=== PATIENT | female | born 1990 | race Caucasian/White ===

== ENCOUNTER 2018-11-04 17:44 | Emergency (ER) | payer SELFPAY ==
[2018-11-04] MEDS ORDERED: OLANZapine 5 MG Tab PO ONE (18:38)
--- NOTE | 2018-11-04 18:42 | EDM.PDOCBH ---
ED HPI GENERAL MEDICAL PROBLEM - General Chief Complaint: Behavioral/Psych Stated Complaint: MEDICAL [facility]IA [facility] Time Seen by Provider: 11/04/18 18:10 Source of Information: Reports: Patient, EMS History Limitations: Reports: Other (minimal old records available, patient not a reliable historian. ) - History of Present Illness INITIAL COMMENTS - FREE TEXT/NARRATIVE: 28 yo female here via EMS who were requested by [employer]. Apparently Martin was on someone deck as a trespasser and when police arrived Martin was making no sense so she was sent to the ER via EMS for evaluation. At some point in the past Martin was on Zyprexa based on the limited records we have. She indicates she has not taken this med for sometime. Martin speaks clearly, but rambles from topic to topic never making any sense. She is not able to tell us about where she lives, where or who her family is, or who her doctor is. She didn't seem to be aware she was on a strangers porch earlier today. Onset: Unknown/Unsure Duration: Chronic (suspect.) Location: Reports: Generalized Severity: Severe Improves with: Reports: Medication (suspected) Context: Reports: Other (suspect chronic mental illness, ? untreated currently) Associated Symptoms: Reports: No Other Symptoms Treatments [employer]: Reports: Other (see below) (none) - Related Data Allergies Allergy/AdvReac Type Severity Reaction Status Date / Time No Known Allergies Allergy Verified 12/01/13 12:01 Home Meds: Home Meds OLANZapine [ZyPREXA] 5 mg PO BEDTIME #30 tab 11/04/18 [Rx] Social & Family History - Tobacco Use Smoking Status *Q: Unknown Ever Smoked ED ROS GENERAL - Review of Systems Review Of Systems: Unable To Obtain (due to patient's current mental illness) ED EXAM, BEHAVIORAL HEALTH - Physical Exam Exam: See Below Exam Limited By: No Limitations General Appearance: Alert, WD/WN, No Apparent Distress Eye Exam: Bilateral Eye: EOMI, Normal Inspection Ears: Other (R ear lobe is red, the L ear she would not let me examine.) Nose: Normal Inspection, No Blood Throat/Mouth: Normal Inspection, Normal Lips, Normal Teeth, Normal Oropharynx, Normal Voice, No Airway Compromise Head: Atraumatic, Normocephalic Neck: Normal Inspection Respiratory/Chest: No Respiratory Distress, Lungs Clear, Normal Breath Sounds, No Accessory Muscle Use Cardiovascular: Regular Rate, Rhythm, No Edema, No Murmur GI/Abdominal: Soft, Non-Tender Back Exam: Normal Inspection Extremities: Normal Inspection, Normal Range of Motion, Non-Tender, No Pedal Edema Neurological: Alert, Normal Mood/Affect, CN II-XII Intact, No Motor/Sensory Deficits, Disoriented to Place, Disoriented to Time. No: Normal Cognition, Disoriented to Person Psychiatric: Alert, Normal Affect, Normal Cognition, Normal Mood, Tangential Thoughts, Grandiose Thoughts, Paranoid Thoughts. No: Homicidal Thoughts, Suicidal Thoughts, Threatening Behavior Skin Exam: Warm, Dry, Intact, Normal color, No rash COURSE, BEHAVIORAL HEALTH COMP - Course Vital Signs: Last Vital Signs Temp 36.3 C 11/04/18 17:54 Pulse 100 11/04/18 17:54 Resp 14 11/04/18 17:54 BP 140/99 H 11/04/18 17:54 Pulse Ox 99 11/04/18 17:54 Orders, Labs, Meds: Laboratory Tests 11/04/18 11/04/18 11/04/18 Range/Units 19:51 19:51 19:51 WBC (4.5-11.0) K/uL RBC (3.30-5.50) M/uL Hgb (12.0-15.0) g/dL Hct (36.0-48.0) % MCV (80-98) fL MCH (27-31) pg MCHC (32-36) % Plt Count (150-400) K/uL Sodium (140-148) mmol/L Potassium (3.6-5.2) mmol/L Chloride (100-108) mmol/L Carbon Dioxide (21-32) mmol/L Anion Gap (5.0-14.0) mmol/L BUN (7-18) mg/dL Creatinine (0.6-1.0) mg/dL Est Cr Clr Drug Dosing mL/min Estimated GFR (MDRD) (>60) Glucose (74-106) mg/dL Calcium (8.5-10.1) mg/dL TSH, Ultra Sensitive (0.358-3.740) uIU/mL Urine Color Yellow Urine Appearance Clear Urine pH 5.0 (4.5-8.0) Ur Specific [place] 1.025 (1.008-1.030) Urine Protein 30 H (NEGATIVE) mg/dL Urine Glucose (UA) Normal (NEGATIVE) mg/dL Urine Ketones 150 H (NEGATIVE) mg/dL Urine Occult Blood Negative (NEGATIVE) Urine Nitrite Negative (NEGATIVE) Urine Bilirubin Negative (NEGATIVE) Urine Urobilinogen Normal (NORMAL) mg/dL Ur Leukocyte Esterase Negative (NEGATIVE) Urine RBC 0-5 (0-5) Urine WBC 0-5 (0-5) Ur Epithelial Cells Moderate Amorphous Sediment Not seen Urine Bacteria Moderate Urine Mucus Many Urine HCG, Qual Negative Urine Opiates Screen Negative (NEGATIVE) Ur Oxycodone Screen Negative (NEGATIVE) Urine Methadone Screen Negative (NEGATIVE) Ur Propoxyphene Screen Negative (NEGATIVE) Ur Barbiturates Screen Negative (NEGATIVE) Ur Tricyclics Screen Negative (NEGATIVE) Ur Phencyclidine Scrn Negative (NEGATIVE) Ur Amphetamine Screen Presumptive positive H (NEGATIVE) U Methamphetamines Scrn Presumptive positive H (NEGATIVE) Urine MDMA Screen Presumptive positive H (NEGATIVE) U Benzodiazepines Scrn Negative (NEGATIVE) U Cocaine Metab Screen Negative (NEGATIVE) U Marijuana (THC) Screen Negative (NEGATIVE) Ethyl Alcohol mg/dL 11/04/18 11/04/18 11/04/18 Range/Units 19:53 19:53 19:53 WBC 10.1 (4.5-11.0) K/uL RBC 4.98 (3.30-5.50) M/uL Hgb 14.6 (12.0-15.0) g/dL Hct 40.8 (36.0-48.0) % MCV 82 (80-98) fL MCH 29 (27-31) pg MCHC 36 (32-36) % Plt Count 237 (150-400) K/uL Sodium 136 L (140-148) mmol/L Potassium 3.2 L (3.6-5.2) mmol/L Chloride 98 L (100-108) mmol/L Carbon Dioxide 20 L (21-32) mmol/L Anion Gap 21.2 H (5.0-14.0) mmol/L BUN 21 H (7-18) mg/dL Creatinine 0.8 (0.6-1.0) mg/dL Est Cr Clr Drug Dosing 92.53 mL/min Estimated GFR (MDRD) > 60 (>60) Glucose 78 (74-106) mg/dL Calcium 9.3 (8.5-10.1) mg/dL TSH, Ultra Sensitive 1.232 (0.358-3.740) uIU/mL Urine Color Urine Appearance Urine pH (4.5-8.0) Ur Specific [place] (1.008-1.030) Urine Protein (NEGATIVE) mg/dL Urine Glucose (UA) (NEGATIVE) mg/dL Urine Ketones (NEGATIVE) mg/dL Urine Occult Blood (NEGATIVE) Urine Nitrite (NEGATIVE) Urine Bilirubin (NEGATIVE) Urine Urobilinogen (NORMAL) mg/dL Ur Leukocyte Esterase (NEGATIVE) Urine RBC (0-5) Urine WBC (0-5) Ur Epithelial Cells Amorphous Sediment Urine Bacteria Urine Mucus Urine HCG, Qual Urine Opiates Screen (NEGATIVE) Ur Oxycodone Screen (NEGATIVE) Urine Methadone Screen (NEGATIVE) Ur Propoxyphene Screen (NEGATIVE) Ur Barbiturates Screen (NEGATIVE) Ur Tricyclics Screen (NEGATIVE) Ur Phencyclidine Scrn (NEGATIVE) Ur Amphetamine Screen (NEGATIVE) U Methamphetamines Scrn (NEGATIVE) Urine MDMA Screen (NEGATIVE) U Benzodiazepines Scrn (NEGATIVE) U Cocaine Metab Screen (NEGATIVE) U Marijuana (THC) Screen (NEGATIVE) Ethyl Alcohol < 3 mg/dL Medications Discontinued Medications Generic Name Dose Route Start Last Admin Trade Name Freq PRN Reason Stop Dose Admin Haloperidol Lactate 8 mg 11/04/18 19:10 11/04/18 19:21 Haldol IM 11/04/18 19:11 8 mg ONETIME ONE Administration Olanzapine 5 mg 11/04/18 18:38 Zyprexa PO 11/04/18 18:39 ONETIME ONE Re-Assessment/Re-Exam: After Haldol she became much more lucid and was able to tell us more clearly that her father lived in [place] and that she has schizophrenia and has not been taking her meds for sometime. Is now cooperative with allowing blood draw and provided a urine specimen. Re-Assessment/Re-Exam Date: 11/04/18 Departure - Departure Time of Disposition: 21:25 Disposition: Home, Self-Care 01 Condition: Fair Clinical Impression: Medical non-compliance, Methamphetamine use Schizophrenia Qualifiers: Schizophrenia type: unspecified Qualified Code(s): F20.9 - Schizophrenia, unspecified - Discharge Information *PRESCRIPTION DRUG MONITORING PROGRAM REVIEWED*: No *COPY OF PRESCRIPTION DRUG MONITORING REPORT IN PATIENT CHRIS: No Prescriptions: OLANZapine [ZyPREXA] 5 mg PO BEDTIME #30 tab Instructions: Substance Use Disorder and Mental Illness Referrals: PCP,None [Primary Care Provider] - Forms: ED Department Discharge
[2018-11-04] MEDS ORDERED: Haloperidol Lactate 5 MG/ML SDV IM ONE (19:10)
== END 2018-11-04 21:35 | disposition home or self-care (01) ==
LOC: JP.ED 17:44
DX: F20.9 Schizophrenia, unspecified (principal); F15.90 Other stimulant use, unspecified, uncomplicated; Z91.19 Patient's noncompliance with other medical treatment and regimen
CPT/HCPCS: 36415; 80048; 80305; 81001; 81025; 84443; 85027; 96372; 99284; G0480; J1630

== ENCOUNTER 2023-06-19 19:30 | Emergency (ER) | payer MEDICAID ==
[2023-06-19 20:17] LABS: BASOPHILS PERCENT AUTO 0.3 % (0.1-1.3); EOSINOPHILS ABSOLUTE AUTO 0.06 K/uL (0.00-0.40); EOSINOPHILS PERCENT AUTO 0.8 % (0.0-5.4); HEMATOCRIT 33.8 % (34.3-46.0); HEMOGLOBIN 11.7 g/dL (11.2-15.5); IMMATURE GRAN ABSOLUTE AUTO 0.03 K/uL (0.00-0.23); IMMATURE GRAN PERCENT AUTO 0.4 % (0.0-0.7); LYMPHOCYTES ABSOLUTE AUTO 1.38 K/uL (0.8-3.3); LYMPHOCYTES PERCENT AUTO 18.7 % (11.4-47.7); MEAN CORPUSCULAR HEMOGLOBIN 30.1 pg (31.6-35.5); MEAN CORPUSCULAR HGB CONC 34.6 g/dL (31.6-35.5); MEAN CORPUSCULAR VOLUME 86.9 fL (81.4-99.0); MONOCYTES ABSOLUTE AUTO 0.52 K/uL (0.20-0.90); NEUTROPHILS ABSOLUTE AUTO 5.38 K/uL (1.0-7.6); NEUTROPHILS PERCENT AUTO 72.8 % (40.0-78.1); PLATELET COUNT,PLT 198 K/uL (130-375); RED BLOOD CELL COUNT 3.89 M/uL (3.77-5.24); WHITE BLOOD CELL COUNT,WBC 7.4 K/uL (3.2-11.0)
[2023-06-19 20:19] LABS: BASOPHILS ABSOLUTE AUTO 0.02 K/uL (0.00-0.10)
[2023-06-19] MEDS: Ibuprofen 600 MG Tab PO ONE (20:55)
== END 2023-06-19 22:17 | disposition home or self-care (01) ==
LOC: JP.ED 19:30
DX: O03.4 Incomplete spontaneous abortion without complication (principal); O99.332 Smoking (tobacco) complicating pregnancy, second trimester; F17.210 Nicotine dependence, cigarettes, uncomplicated; Z88.0 Allergy status to penicillin; Z86.16 Personal history of COVID-19
CPT/HCPCS: 36415; 84702; 85025; 86900; 86901; 99283; 99284; A9270-GY